=== PATIENT | male | born 2000 | race African-American/Black ===

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

== ENCOUNTER 2018-08-07 20:43 | Emergency (ER) | payer OTHER, SELFPAY ==
[2018-08-07] MEDS ORDERED: Lidocaine 1% w/Epinephrine 1:100K 20 ML VIAL ONE (22:12)
[2018-08-07] MEDS ORDERED: Adacel (T-DAP) 0.5 ML SYRINGE ONE (22:22)
== END 2018-08-07 22:41 | disposition home or self-care (01) ==
LOC: ERS 20:43
DX: L02.214 Cutaneous abscess of groin (principal); J45.909 Unspecified asthma, uncomplicated; Z87.891 Personal history of nicotine dependence
CPT/HCPCS: 10061; 90471; 90715; J2001

== ENCOUNTER 2018-11-14 23:11 | Emergency (ER) | payer SELFPAY | END 2018-11-14 23:42 | disposition home or self-care (01) | LOC: ERS 23:11 | DX: L03.012 Cellulitis of left finger (principal); F17.210 Nicotine dependence, cigarettes, uncomplicated; J45.909 Unspecified asthma, uncomplicated | CPT/HCPCS: 26010 ==

== ENCOUNTER 2019-01-22 23:05 | Emergency (ER) | payer SELFPAY ==
--- NOTE | 2019-01-22 23:49 | RAD ---
EXAM: RIGHT HIP TWO VIEWS: 01/22/19 HISTORY: Right hip pain. FINDINGS/IMPRESSION: No fracture, dislocation, or other significant acute osseous abnormality. POS: [facility]
[2019-01-23] MEDS ORDERED: Ketorolac Tromethamine 60 MG/2 ML VIAL ONE (00:05)
== END 2019-01-23 00:28 | disposition home or self-care (01) ==
LOC: ERS 23:05
DX: S70.01XA Contusion of right hip, initial encounter (principal); J45.909 Unspecified asthma, uncomplicated; F17.210 Nicotine dependence, cigarettes, uncomplicated; W51.XXXA Accidental striking against or bumped into by another person, initial encounter; Y93.67 Activity, basketball
CPT/HCPCS: 96372; J1885

== ENCOUNTER 2019-02-28 20:44 | Emergency (ER) | payer SELFPAY ==
[2019-02-28] MEDS ORDERED: Acetaminophen 500 MG TAB ONE (21:30)
--- NOTE | 2019-02-28 21:35 | RAD ---
EXAM: Single view of the chest HISTORY: Chest pain COMPARISON: 08/13/2017 FINDINGS: Single view of the chest shows a normal sized cardiomediastinal silhouette. There is no claire dence of consolidation, mass, or pleural effusion. The bones are unremarkable. IMPRESSION: No evidence of acute cardiopulmonary disease
[2019-02-28 22:04] LABS: #Basophils 0.1 thou/uL (0.0-0.2); #Eosinphils 0.3 thou/uL (0.0-0.7); #Lymphocytes 3.3 thou/uL (1.20-3.40); #Monocytes 0.8 thou/uL (0.11-0.59); #Neutrophils 4.4 thou/uL (1.40-6.50); %Basophils 0.9 % (0.0-1.0); %Eosinophils 3.9 % (0.0-10.0); %Lymphocytes 36.7 % (21.0-51.0); %Monocytes 8.6 % (0.0-10.0); %Neutrophils 49.9 % (42.0-75.0); Hemoglobin 16.5 g/dL (14.0-18.0); Mean Corpuscular HGB CONC 35.1 g/dL (32.0-36.0); Mean Corpuscular Hemoglobin 31.5 pg (27.0-31.0); Mean Corpuscular Volume 89.8 fL (78.0-98.0); Mean Platelet Volume 6.6 fL (7.4-10.4); Platelet Count 320 thou/uL (130-400); RBC Distribution Width 11.4 % (11.5-14.5); Red Blood Cell (RBC) Count 5.24 mill/uL (4.70-6.10); White Blood Cell (WBC) Count 8.9 thou/uL (4.8-10.8)
[2019-02-28 22:24] LABS: ALT (SGPT) 18 U/L (8-55); AST (SGOT) 20 U/L (5-34); Albumin 4.8 g/dL (3.5-5.0); Alkaline Phosphatase 69 U/L (40-150); Anion Gap 13 mmol/L (10-20); BUN (Urea Nitrogen) 13 mg/dL (8.9-20.6); Bilirubin, Total 0.4 mg/dL (0.2-1.2); Calc. Creatinine Clearance 0 mL/min (70-130); Calcium 9.5 mg/dL (7.8-10.44); Carbon Dioxide 22 mmol/L (22-29); Chloride 102 mmol/L (98-107); Estimated GFR-MDRD 83; Globulin 2.8 g/dL (2.4-3.5); Glucose 81 mg/dL (70-105); Potassium 3.3 mmol/L (3.5-5.1); Protein, Total 7.6 g/dL (6.0-8.3); Sodium 134 mmol/L (136-145)
== END 2019-02-28 23:12 | disposition home or self-care (01) ==
LOC: ERS 20:44
DX: R07.2 Precordial pain (principal); K08.89 Other specified disorders of teeth and supporting structures; J45.909 Unspecified asthma, uncomplicated; F17.210 Nicotine dependence, cigarettes, uncomplicated
CPT/HCPCS: 36415; 71045; 80053; 84484; 85025; 93005; 94760

== ENCOUNTER 2019-09-03 12:13 | Emergency (ER) | payer SELFPAY ==
[2019-09-03] MEDS ORDERED: Ibuprofen 800 MG TAB ONE (13:21)
== END 2019-09-03 13:23 | disposition home or self-care (01) ==
LOC: ERS 12:13
DX: J06.9 Acute upper respiratory infection, unspecified (principal); J45.909 Unspecified asthma, uncomplicated; F17.210 Nicotine dependence, cigarettes, uncomplicated
CPT/HCPCS: 87804; 99283

== ENCOUNTER 2019-12-11 15:04 | Emergency (ER) | payer SELFPAY ==
--- NOTE | 2019-12-11 16:22 | RAD ---
RIGHT WRIST RADIOGRAPH THREE VIEWS: 12/11/19 PROVIDED CLINICAL HISTORY: Pain status post injury. FINDINGS: There is no definite evidence for fracture or other acute osseous abnormality. Subtle lucency involvi ng the distal pole of the scaphoid could reflect nondisplaced fracture, though this is equivocal. Mil d negative ulnar variance. Alignment appears otherwise anatomic. Joint spaces appear preserved. IMPRESSION: Findings equivocal for nondisplaced distal pole scaphoid fracture. POS: [facility]
== END 2019-12-11 17:02 | disposition home or self-care (01) ==
LOC: ERS 15:04
DX: S62.001A Unspecified fracture of navicular [scaphoid] bone of right wrist, initial encounter for closed fracture (principal); J45.909 Unspecified asthma, uncomplicated; V00.131A Fall from skateboard, initial encounter; Z87.891 Personal history of nicotine dependence

== ENCOUNTER 2020-06-28 11:56 | Emergency (ER) | payer SELFPAY ==
[2020-06-28] MEDS ORDERED: Ketorolac Tromethamine 30 MG/ML VIAL ONE (12:45)
== END 2020-06-28 13:16 | disposition home or self-care (01) ==
LOC: ERS 11:56
DX: K64.4 Residual hemorrhoidal skin tags (principal); J45.909 Unspecified asthma, uncomplicated
CPT/HCPCS: 96372; 99282; J1885

== ENCOUNTER 2021-04-17 17:00 | Emergency (ER) | payer SELFPAY ==
[2021-04-17] MEDS ORDERED: Acetaminophen 500 MG TAB ONE (17:55)
[2021-04-17] MEDS ORDERED: Ketorolac Tromethamine 30 MG/ML VIAL ONE (17:55)
[2021-04-17] MEDS ORDERED: Dexamethasone 10 MG/ML VIAL ONE (17:56)
== END 2021-04-17 18:48 | disposition home or self-care (01) ==
LOC: ERS 17:00
DX: J02.9 Acute pharyngitis, unspecified (principal); J45.909 Unspecified asthma, uncomplicated
CPT/HCPCS: 87081; 87430; 96372; 99283; J1100; J1885

== ENCOUNTER 2021-05-10 08:13 | Emergency (ER) | payer SELFPAY ==
[2021-05-10] MEDS ORDERED: Lidocaine 1% w/Epinephrine 1:100K 20 ML VIAL ONE (08:32)
== END 2021-05-10 09:50 | disposition home or self-care (01) ==
LOC: ERS 08:13
DX: N49.2 Inflammatory disorders of scrotum (principal); J45.909 Unspecified asthma, uncomplicated
CPT/HCPCS: 54700

== ENCOUNTER 2021-11-12 06:56 | Emergency (ER) | payer SELFPAY ==
[2021-11-12] MEDS ORDERED: Mag-Al 1200 mg/1200 mg/30 ML UDCUP ONE (07:55)
[2021-11-12] MEDS ORDERED: Lidocaine Viscous Sol 2% 15 ml UD Cup ONE (07:55)
[2021-11-12 08:35] LABS: #Eosinphils 0.7 thou/uL (0.0-0.7); #Lymphocytes 1.5 thou/uL (1.20-3.40); #Monocytes 0.6 thou/uL (0.11-0.59); #Neutrophils 5.5 thou/uL (1.40-6.50); %Basophils 0.6 % (0.0-1.0); %Lymphocytes 17.6 % (21.0-51.0); %Monocytes 7.2 % (0.0-10.0); %Neutrophils 66.7 % (42.0-75.0); Hemoglobin 14.8 g/dL (14.0-18.0); Mean Corpuscular HGB CONC 33.5 g/dL (32.0-36.0); Mean Corpuscular Hemoglobin 31.5 pg (27.0-31.0); Mean Platelet Volume 6.4 fL (7.4-10.4); Platelet Count 352 thou/uL (130-400); RBC Distribution Width 11.6 % (11.5-14.5); White Blood Cell (WBC) Count 8.3 thou/uL (4.8-10.8)
[2021-11-12 08:51] LABS: ALT (SGPT) 17 U/L (8-55); AST (SGOT) 22 U/L (5-34); Alkaline Phosphatase 63 U/L (40-110); Anion Gap 13 mmol/L (10-20); BUN (Urea Nitrogen) 12 mg/dL (8.9-20.6); Bilirubin, Total 0.4 mg/dL (0.2-1.2); Calc. Creatinine Clearance 0 mL/min (70-130); Calcium 9.2 mg/dL (7.8-10.44); Carbon Dioxide 25 mmol/L (22-29); Chloride 104 mmol/L (98-107); Glucose 87 mg/dL (70-105); Lipase 21 U/L (8-78); Potassium 4.3 mmol/L (3.5-5.1); Sodium 138 mmol/L (136-145)
== END 2021-11-12 09:28 | disposition home or self-care (01) ==
LOC: ERS 06:56
DX: R10.84 Generalized abdominal pain (principal); R10.816 Epigastric abdominal tenderness; R11.0 Nausea; F17.290 Nicotine dependence, other tobacco product, uncomplicated
CPT/HCPCS: 80053; 83690; 85025; 99284

== ENCOUNTER 2022-01-01 13:48 | Emergency (ER) | payer SELFPAY | END 2022-01-01 15:02 | disposition home or self-care (01) | LOC: ERS 13:48 | DX: U07.1 COVID-19 (principal); J45.909 Unspecified asthma, uncomplicated; F17.290 Nicotine dependence, other tobacco product, uncomplicated | CPT/HCPCS: 99283; U0003; U0005 ==